=== PATIENT | male | born 1995 | race Caucasian/White ===

== ENCOUNTER 2024-11-21 12:48 | Emergency (ER) | payer SELFPAY ==
[2024-11-21 12:51] VITALS: BP 109/72; PULSE 69; TEMP 36.3; O2SAT 98; BMI 28.3
--- NOTE | 2024-11-21 12:57 | ECG_ITS ---
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 Measurements Intervals [place] Rate: 71 P: 42 PA: 132 QRS: 61 QRSD: 98 T: 40 QT: 364 QTc: 398 Interpretive Statements SINUS RHYTHM EARLY REPOLARIZATION [ST ELEVATION WITH NORMALLY INFLECTED T-WAVE] INTERPRETATION BASED ON A DEFAULT AGE OF 40 YEARS No previous ECG available for comparison Electronically Signed On 11-22-2024 08:20:07 CDT by Remberto Allen M.D. [email or web address]
[2024-11-21 13:59] LABS: Hematocrit 40.7 % (37-53); Hemoglobin 13.90 g/dL (11.27-16.99); Mean Corpuscular HGB Conc 34.2 g/dL (30-55); Mean Corpuscular Hemoglobin 31.8 pg (27-33); Mean Corpuscular Volume 93.1 fl (82-101); Nucleated Red Blood Cells % 0 %; Platelet Count 186 10^3/cmm (157-399); Red Blood Count 4.37 10^6/uL (3.85-5.65); White Blood Count 7.44 10^3/uL (3.29-11.43)
[2024-11-21 14:11] LABS: INR 0.96 (0.8-1.2); Prothrombin Time 13.40 SECONDS (12.1-14.9)
[2024-11-21 14:16] LABS: Alanine Aminotransferase 12 U/L (0-41); Albumin Level 4.6 g/dL (3.5-5.2); Alkaline Phosphatase 59 U/L (40-130); Anion Gap 13.7 (5-19); Aspartate Amino Transferase 12 U/L (0-40); Blood Urea Nitrogen 9 mg/dL (6-20); Calcium 9.5 mg/dL (8.5-10.5); Carbon Dioxide 29 mmol/L (22-29); Chloride 101 mmol/L (98-107); Creatinine Clr Calc Pharmacy 166.6734; Globulin 2.2 g/dL (1.3-4.6); Glucose 92 mg/dL (65-115); Lipase 21 U/L (13-60); Osmolality Calculated 288 mOsm/kg (285-295); Potassium 3.7 mmol/L (3.5-5.1); Sodium 140 mmol/L (136-145); Total Protein 6.8 g/dL (6.6-8.7)
[2024-11-21 14:19] LABS: Troponin(5th) Baseline < 6 ng/L (0-15)
--- NOTE | 2024-11-21 14:57 | ECG_ITS ---
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 Measurements Intervals [place] Rate: 69 P: 47 [place]: 136 QRS: 65 QRSD: 94 T: 31 QT: 371 QTc: 398 Interpretive Statements SINUS RHYTHM ST ELEVATION CONSISTENT WITH INJURY, PERICARDITIS, OR EARLY REPOLARIZATION [ST ELEVATION W/O NORMALLY INFLECTED T-WAVE] NONSPECIFIC ST & T-WAVE ABNORMALITY Compared to ECG 11/21/2024 12:54:57 ST (T wave) deviation now present T-wave abnormality now present Electronically Signed On 11-22-2024 08:34:11 CDT by Remberto Allen M.D. [email or web address] [id number]
[2024-11-21 16:38] LABS: Troponin 5 2HR < 6.0 ng/L (0-15); Troponin 5 2HR Delta 0 ABS# (0-10)
--- NOTE | 2024-11-21 16:42 | ED_ITS ---
HPI - Chest Pain 2 General: Chief Complaint: Chest Pain Stated Complaint: chest pain, from [facility] Time Seen by Provider: 11/21/24 16:42 History of Present Illness: 29-year-old male presents emergency room with complaint of chest pain that began last night. Patient was seen at a local primary care clinic directed to the emergency roomwith complaints of chest pain. . No history of diabetes mellitus no history of cardiac arrhythmias or coronary artery disease. Associated symptoms: Deny abdominal pain, dyspnea or fever(s) Related Data Previous Rx's ?Medication ?Instructions ?Recorded pantoprazole 40 mg tablet,delayed 40 mg PO BID 30 days #60 tabs 11/21/24 release Allergies Allergy/AdvReac Type Severity Reaction Status Date / Time No Known Allergies Allergy Verified 11/21/24 13:00 Review of Systems 2 Const: Denies: fever(s) or chills Card: Reports: chest pain Resp: Denies: dyspnea GI: Denies: abdominal pain : Denies: dysuria, urinary frequency or urinary urgency Musc: Denies: neck pain or back pain Skin/Breast: Denies: rash Physical Exam 2 Const: GENERAL APPEARANCE: cooperative ORIENTATION/CONSCIOUSNESS: Yes awake, Yes oriented to person, Yes oriented to place and Yes oriented to time HENMT: COMMON NORMALS: normocephalic, atraumatic and hearing grossly normal bilaterally HEAD & SCALP: normocephalic and atraumatic Resp: COMMON NORMALS: normal respiratory effort, No retractions, No use of accessory muscles and clear to auscultation bilaterally AUSCULTATION: clear to auscultation bilaterally Cardio: COMMON NORMALS: regular rate, regular rhythm and No murmurs present (Cardio) RATE: regular rate RHYTHM: regular rhythm GI: COMMON NORMALS: Soft to palpation and No hepatosplenomegaly present A USCULTATION: Yes normoactive bowel sounds PALPATION: Yes Soft to palpation, No Tenderness to palpation present (GI), No Guarding due to palpation present (GI) and Yes No hepatosplenomegaly present Extremity: COMMON NORMALS: normal to inspection, capillary refill normal, no clubbing, cyanosis or edema, no calf tenderness and no pedal edema Neuro: SENSORIUM/ORIENTATION: Yes oriented to person, Yes oriented to place and Yes oriented to time Skin: COMMON NORMALS: no rashes or lesions noted GENERAL SKIN EXAM: no rashes or lesions noted Course 2 Vital Signs: Vital signs: Vital Signs Temperature 97.8 F 11/21/24 17:03 Pulse Rate 70 11/21/24 17:36 Respiratory Rate 16 11/21/24 17:36 Blood Pressure 108/71 11/21/24 17:36 Pulse Oximetry 99 11/21/24 17:36 Oxygen Delivery Me thod Room Air 11/21/24 17:03 MDM - Chest Pain Medical Decision Making No sign of acute coronary syndrome EKG shows early repull cardiac enzymes negative. Echocardiogram done verbal report no acute findings. Patient did get relief with GI cocktail discharge patient home start Protonix 40 mg twice daily x 10 days then 40 mg daily Chowdary primary care doctor Medical Records I reviewed the patient's medical records. Lab Data I reviewed the patient's lab results. 11/21/24 13:53 11/21/24 13:53 Radiology Impressions Chest X-Ray 11/21/24 17:05 IMPRESSION: No acute cardiopulmonary abnormality. Laboratory Results WBC 7.44 10^3/uL (3.29-11.43) 11/21/24 13:53 RBC 4.37 10^6/uL (3.85-5.65) 11/21/24 13:53 Hgb 13.90 g/dL (11.27-16.99) 11/21/24 13:53 Hct 40.7 % (37-53) 11/21/24 13:53 MCV 93.1 fl (82-101) 11/21/24 13:53 MCH 31.8 pg (27-33) 11/21/24 13:53 MCHC 34.2 g/dL (30-55) 11/21/24 13:53 RDW 11.9 % (12.1-15.1) L 11/21/24 13:53 Plt Count 186 10^3/cmm (157-399) 11/21/24 13:53 MPV 8.7 fL (7.4-10.4) 11/21/24 13:53 Neut % (Auto) 63.2 % 11/21/24 13:53 Lymph % (Auto) 23.3 % 11/21/24 13:53 [place] % (Auto) 9.7 % 11/21/24 13:53 Eos % (Auto) 3.2 % 11/21/24 13:53 Baso % (Auto) 0.3 % 11/21/24 13:53 Neut # (Auto) 4.71 10^3/uL (1.8-7.7) 11/21/24 13:53 Lymph # (Auto) 1.7 10^3/uL (0.8-4.8) 11/21/24 13:53 [place] # (Auto) 0.7 10^3/uL (0.2-0.9) 11/21/24 13:53 Eos # (Auto) 0.2 10^3/uL (0.0-0.8) 11/21/24 13:53 Baso # (Auto) 0.0 10^3/uL (0.0-0.1) 11/21/24 13:53 Nucleated RBC % (auto) 0 % 11/21/24 13:53 Nucleated RBCs # 0.0 /100WBC 11/21/24 13:53 PT 13.40 SECONDS (12.1-14.9) 11/21/24 13:53 INR 0.96 (0.8-1.2) 11/21/24 13:53 Sodium 140 mmol/L (136-145) 11/21/24 13:53 Potassium 3.7 mmol/L (3.5-5.1) 11/21/24 13:53 Chloride 101 mmol/L (98-107) 11/21/24 13:53 Carbon Dioxide 29 mmol/L (22-29) 11/21/24 13:53 Anion Gap 13.7 (5-19) 11/21/24 13:53 BUN 9 mg/dL (6-20) 11/21/24 13:53 Creatinine 0.6 mg/dL (0.7-1.2) L 11/21/24 13:53 GFR Calculation 158.2 mL/min (90-130) H 11/21/24 13:53 Glucose 92 mg/dL (65-115) 11/21/24 13:53 Calculated Osmolality 288 mOsm/kg (285-295) 11/21/24 13:53 Calcium 9.5 mg/dL (8.5-10.5) 11/21/24 13:53 Total Bilirubin 0.9 mg/dL (0.15-1.2) 11/21/24 13:53 AST 12 U/L (0-40) 11/21/24 13:53 ALT 12 U/L (0-41) 11/21/24 13:53 Alkaline Phosphatase 59 U/L (40-130) 11/21/24 13:53 Troponin T Baseline < 6 ng/L (0-15) 11/21/24 13:53 Troponin T 120 Minute < 6.0 ng/L (0-15) 11/21/24 15:52 Delta Troponin T 0 ABS# (0-10) 11/21/24 15:52 Total Protein 6.8 g/dL (6.6-8.7) 11/21/24 13:53 Albumin 4.6 g/dL (3.5-5.2) 11/21/24 13:53 Globulin 2.2 g/dL (1.3-4.6) 11/21/24 13:53 Lipase 21 U/L (13-60) 11/21/24 13:53 All radiology interpretation(s) finalized by discharge EKG Data EKG 1: Interpretation: 11/21/2024 1254 Normal sinus rhythm with early repolarization noted. Rate of 71 ID interval 132 QTc 398. No previous EKGs available EKG 2: Interpretation: EKG 11/21/2024 1651 sinus rhythm EKG shows no changes from earlier EKG. Discharge Plan Discharge Patient Disposition: Home Clinical Impression: Atypical chest pain, Chest pain due to GERD Condition: Stable Prescriptions: New pantoprazole 40 mg tablet,delayed release (DR/EC) 40 mg PO BID 30 Days Qty: 60 0RF Rx Instructions: 1 p.o. twice daily x 10 days then 1 p.o. daily Discharge Orders: Discharge ED (Routine); Ordered 11/21/24 Ordered By: Dilan Vergara Discharge Diet: Usual diet Discharge Activity: Resume usual activity Patient Instructions: Opioid Safety, Pain Management, Patient Portal & [place] Instructions Activity Restrictions/Additional Instructions: Thank you for choosing [facility] for your healthcare needs today. It is very important that you follow up as instructed or that you return to the Emergency Department should you have concerns or if your condition changes or worsens in any way. You were seen in the emergency room with complaints of chest discomfort. Your cardiac enzymes did not show any signs of acute cardiac injury. Your EKG shows changes typical for what is called early repolarization which is benign. Based on your description of symptoms suspect this is more from reflux. Echocardiogram did not show any acute pathology either. Recommend you start on pantoprazole 40 mg 1 pill twice a day for 10 days then 1 pill daily. Print Language: Dutch Coding Level of Care Code ED Shoe Cobbler for Ana Cabrera
[2024-11-21] MEDS: lidocaine 2% viscous 15 ML, aluminum-mag hydrox-simethicon 30 ML, sucralfate oral liq 1 GM PO (16:57)
[2024-11-21 17:03] VITALS: BP 108/71; PULSE 70; RESP 12; TEMP 36.6; O2SAT 98
--- NOTE | 2024-11-21 17:05 | XRR_ITS ---
PROCEDURE INFORMATION: Exam: XR Chest Exam date and time: 11/21/2024 5:11 PM Age: 29 years old Clinical indication: Dyspnea; Additional info: Dyspnea/cough TECHNIQUE: Imaging protocol: Radiologic exam of the chest. Views: 1 view. COMPARISON: No relevant prior studies available. FINDINGS: Lungs: Unremarkable. No infiltrate or consolidation. Normal pulmonary vascularity. Pleural spaces: Unremarkable. No pleural effusion. No pneumothorax. Heart/Mediastinum: Unremarkable. No cardiomegaly. Bones/joints: Visualized osseous structures show no acute abnormality. XR/XR chest 1V portable [id number] IMPRESSION: No acute cardiopulmonary abnormality.
[2024-11-21 17:36] VITALS: BP 108/71; PULSE 70; RESP 16; O2SAT 99
== END 2024-11-21 17:36 | disposition home or self-care (01) ==
PROVIDERS: Emergency Medicine; Emergency Provider Family Medicine
DX: R07.89 Other chest pain (principal); K21.9 Gastro-esophageal reflux disease without esophagitis
CPT/HCPCS: 36415; 71045; 80053; 83690; 84484; 85025; 85610; 93005; 93306; 99285; J9999